=== PATIENT | male | born 1990 | race Caucasian/White ===

== ENCOUNTER 2016-05-23 14:39 | Inpatient (IN) | payer OTHER ==
[2016-05-23] MEDS ORDERED: 0.9 % SODIUM CHLORIDE 1,000 ML IV ONE (15:18)
[2016-05-23] MEDS ORDERED: 0.9 % SODIUM CHLORIDE 1,000 ML IV SCH ×2 (15:30→17:30)
--- NOTE | 2016-05-23 15:36 | ED Physician Documentation ---
General Adult - HISTORIAN Historian: patient, parent - HPI Chief Complaint: General Adult Additional Information: fever ache all over n/e onset 2 wks ago better then fe-occ w fever to 103.9 tachycardia rhinorrhea Timing: worse Severity: moderate, severe - ROS CONST: no problems EYES/ENT: none, nasal drainage. denies: problems with vision, sore throat CVS/RESP: denies: chest pain, shortness of breath, cough GI/: vomiting, nausea MS/SKIN/LYMPH: none, calf pain, neck pain, joint pain, back pain NEURO/PSYCH: denies: headache, fainting, dizziness - PAST HX Past History: none Other History: none Surgeries/Procedures: none Immunizations: UTD. denies: influenza, pneumovax Allergies/Adverse Reactions: Allergies Allergy/AdvReac Type Severity Reaction Status Date / Time No Known Drug Allergies Allergy Verified 05/23/16 17:05 - SOCIAL HX Smoking History: non-smoker Alcohol Use: occasionally Drug Use: none - FAMILY HX Family History: Yes (f-l-w [id number] sib l/w) - REVIEWED ASSESSMENTS Nursing Assessment Reviewed: Yes Vitals Reviewed: Yes ED Results Lab/Radiology - Orders Orders: ED Orders Category Date Time Status Continuous EKG monitoring Q30M Care 05/23/16 15:18 Active Continuous Pulse Oximetry Q30M Care 05/23/16 15:[address] Saline Lock/IV Now Care 05/23/16 15:18 Active CBC/PLATELET/DIFF Stat Lab 05/23/16 15:20 Received CMP Stat Lab 05/23/16 15:20 Received DRUG SCREEN URINE MEDICAL ONLY Stat Lab 05/23/16 Ordered INFLUENZA A&B Stat Lab 05/23/16 Uncollected THYROID STIMULATING HORMONE Stat Lab 05/23/16 15:20 Received TROPONIN I (cTnI) Stat Lab 05/23/16 15:20 Received UA W/MICRO IF INDICATED Stat Lab 05/23/16 15:21 Ordered 0.9 % Sodium Chloride [Normal Saline] 1,000 ml Med 05/23/16 15:18 Discontinued IV .STK-MED 0.9 % Sodium Chloride [Normal Saline] 1,000 ml Med 05/23/16 15:30 Ordered IV Q1 EKG WITH COMPARISON Routine Ther 05/23/16 Completed EKG WITH COMPARISON Stat Ther 05/23/16 Ordered General Adult Physical Exam - PHYSICAL EXAM GENERAL APPEARANCE: moderate distress EENT: eye inspection normal, pharynx normal NECK: normal inspection, lymphadenopathy RESPIRATORY: no resp distress, chest non-tender, breath sounds normal CVS: tachycardia (130+) ABDOMEN: soft, non-tender BACK: normal inspection SKIN: warm/dry EXTREMITIES: non-tender, normal range of motion, no evidence of injury, no edema NEURO: oriented X3, CN's nml as tested, motor nml, sensation nml, mood/affect nml, cognition normal Discharge Clincal Impression: influenza-non a non b Condition: Good Disposition: 09 ADMITTED INPATIENT Decision to Admit: [id number] Decision Time: 17:23
[2016-05-23] MEDS ORDERED: ACETAMINOPHEN 325 MG TABLET PO ONE (15:40)
[2016-05-23 15:48] LABS: eGFR (African) > 60; eGFR (Non-African) > 60
[2016-05-23 16:07] LABS: BASOPHILS % 0.1 (0.0-1.5); EOSINOPHILS % 0.4 % (0.0-6.8); LYMPHOCYTES # 0.8 # k/uL (0.6-4.0); MEAN CORPUSCULAR HEMOGLOBIN 31.2 pg (28.0-34.0); MONOCYTES # 0.8 # k/uL (0.0-0.9); MONOCYTES % 10.6 % (0.0-11.0); NEUTROPHILS # 5.6 # k/uL (1.4-7.7)
[2016-05-23 16:27] LABS: APPEARANCE,URINE Clear (CLEAR); COLOR,URINE Yellow (YELLOW); OCCULT BLOOD,URINE Negative (NEGATIVE); PH URINE 8.5 (5.0 - 8.0); UROBILINOGEN URINE 0.2 Eu (0.2-1.0)
[2016-05-23 16:32] LABS: AMPHETAMINE NEGATIVE ng/mL (<1000); BARBITURATES NEGATIVE ng/mL (<300); CANNABINOIDS NEGATIVE ng/mL (<50); COCAINE NEGATIVE ng/mL (<150); METHAMPHETAMINE NEGATIVE ng/mL (<1000); METHYLENEDIOXYMETHAMPHETAMINE NEGATIVE ng/mL (<500)
[2016-05-23 16:34] LABS: AMORPHOUS SEDIMENT,UR FEW (NEGATIVE)
[2016-05-23 19:11] VITALS: BMI 24.0
--- NOTE | 2016-05-23 19:43 | History and Physical Report ---
History of Present Illnes - History of Present Illness Reason for Visit: Nausea/vomiting/fever/weakness History of Present Illness: This is a 26 year old male admitted for weakness and nausea/vomiting/fever for the past week or so. He is usually very healthy, however he began to be ill with fever last week. He had an influenza and strep test done in the ER, and both were negative. He continues to be febrile. 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 Gastrointestinal: denies: Constipation, Diverticulosis Heme/Onc: denies: Anemia NOS, B12 deficiency Hepatobiliary: denies: Cirrhosis, Cholelithiasis Psych: denies: Anxiety, Addictions Musculoskeletal: denies: Chronic low back pain, Bursitis Rheumatologic: denies: Fibromyalgia Infectious Disease: denies: Bacterial vaginosis Renal/: denies: Chronic renal insuff, Acute renal failure Endocrine: denies: Diabetes, Hyperthyroidism Dermatology: denies: Eczema, Cellulitis - Past Surgical History Past Surgical History: None - Past Social History Smoke: No Alcohol: None Drugs: None Lives: Alone Domestic Violence: Negative - Health Maintenance Health Maintenance: Cholesterol Influenza Vaccine: Current for this Influenza Season Pneumonia Vaccine: Yes Resuscitation Status: Resusciation Status Resuscitation Status Full Code - Unable to Obtain History Unable to Obtain: No Review of Systems - Review of Systems Constitutional: Fever, Chills, Sweats Eyes: negative: pain ENT: negative: Ear Pain, Ear Discharge Respiratory: negative: Cough, Dry Cardiovascular: negative: Chest Pain, Palpitations Gastrointestinal: Nausea, Vomiting, Abdominal Pain Genitourinary: negative: Dysuria Musculoskeletal: negative: Neck Pain, Shoulder Pain Skin: negative: Rash, Lesions Neurological: Weakness - Medications/Allergies Allergies/Adverse Reactions: Allergies Allergy/AdvReac Type Severity Reaction Status Date / Time No Known Drug Allergies Allergy Verified 05/23/16 17:05 Current Inpatient Medications: Current Inpatient Medications Sodium Chloride (Normal Saline) 1,000 mls @ 1,000 mls/hr IV Q1 CLYDE Last Admin: 05/23/16 15:20 Dose: 1,000 mls/hr Sodium Chloride (Normal Saline) 1,000 mls @ 200 mls/hr IV Q10H CLYDE Sodium Chloride (Normal Saline) 1,000 mls @ 125 mls/hr IV Q8H CLYDE Exam - Exam Vital Signs: Vital Signs (72 hours) 05/23/16 05/23/16 18:39 19:00 Temperature 103.8 F H Pulse Rate 68 Pulse Rate [ 112 H Pulse ox] Respiratory 20 Rate Blood Pressure 141/75 [Left Arm] O2 Sat by Pulse 95 Oximetry General: Alert, Oriented to Person, Oriented to Place, Oriented to Time, Cooperative, Mild distress HEENT: Atraumatic, PERRLA, EOMI Neck: No: Stridor Lungs: Clear to auscultation, Normal air movement, Speaks full Sentences. No: Respiratory Distress, Wheezes, Rales Cardiovascular: Regular rate, Normal S1, Normal S2 Murmur: No: Systolic Murmur, Diastolic Murmur Murmur Location: No: [place] Abdomen: Normal bowel sounds, Soft, No tenderness Genitourinary: No: Right Inguinal Hernia, Left Inguinal Hernia Male Genitourinary: No: Scrotal Edema Integumentary: Normal, Flushed Extremities: No clubbing, No cyanosis, No edema Neurological: Normal gait, Normal speech Psych/Mental Status: Mental status NL Assessment/Plan - Assessment/Plan (1) Fever Status: Acute Current Visit: Yes Qualifiers: Fever type: unspecified Qualified Code(s): R50.9 - Fever, unspecified Assessment: Tylenol for fever Check CXR Repeat labs in am (2) Dehydration Status: Acute Current Visit: Yes Assessment: Continue NS at 125cc/hour Recheck labs in am Anticipate d/c in am. VTE Assessment - RISK FACTOR SCORE VTE RISK FACTOR SCORES: ANTICIPATED BED CONFINEMENT OR IMMOBILIZATION > 24 HOURS - RISK VTE LOW RISK: SCORE OF 1 OR LESS (RISK PROXIMAL DVT 0.4%) NO PROPHYLAXIS NEEDED (DVT prophylaxis not indicated)
[2016-05-23] MEDS: 0.9 % SODIUM CHLORIDE 1,000 ML IV SCH (20:35)
[2016-05-23] MEDS: ACETAMINOPHEN 325 MG TABLET PO PRN (21:49)
[2016-05-24] MEDS: ACETAMINOPHEN 325 MG TABLET PO PRN ×2 (02:37→08:38)
[2016-05-24] MEDS: 0.9 % SODIUM CHLORIDE 1,000 ML IV SCH (04:33)
--- NOTE | 2016-05-24 05:47 | Diagnostic Imaging Report ---
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 Heart size and pulmonary vascularity are normal. Osseous structures are unremarkable. Impression: Normal chest. 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
[2016-05-24 06:26] LABS: MEAN CORPUSCULAR HEMOGLOBIN 31.2 pg (28.0-34.0)
[2016-05-24 06:42] LABS: eGFR (African) > 60; eGFR (Non-African) > 60
[2016-05-24 08:42] VITALS: BP 148/87
--- NOTE | 2016-05-25 09:22 | Discharge Summary ---
DATE OF ADMISSION: May 23, 2016 DATE OF DISCHARGE: May 24, 2016 DIAGNOSES ON THIS HOSPITALIZATION: 1. Fever. 2. Dehydration. SUMMARIZATION OF ADMISSION HISTORY AND PHYSICAL: This is a 26-year-old male who was admitted for weakness, nausea, vomiting, and fever for the last week or so. He is usually very healthy; however, he has been ill for about the last week. He had an Influenza test and a strep test done in the ER and both of which were negative. He was admitted for IV hydration. HOSPITAL COURSE: He was admitted and IV hydration was given simply using normal saline. After a bolus of normal saline, he was able on the morning of discharge to eat very well. He will be discharged to home with Tylenol 650 mg every 4 hours p.r.n. fever. Continue oral rehydration. He will be off work until May 26, 2016. DISCHARGE INSTRUCTIONS: He will follow up in the office in 1 week. TAHIR
== END 2016-05-24 10:25 | disposition home or self-care (01) | DRG 641 ==
LOC: ED 14:39 → SOUTH 18:06
PROVIDERS: ADMIT Family Medicine; ATTEND Family Medicine
DX: E86.0 Dehydration (principal); R50.9 Fever, unspecified; R11.2 Nausea with vomiting, unspecified
CPT/HCPCS: 36415; 71020; 80048; 80053; 80377; 81002; 84443; 84484; 85025; 85027; 87070; 87400; 87880; 93005; J7030; 96360; 99222; 99238; 99284; G0481; S1016

== ENCOUNTER 2016-05-26 12:18 | Outpatient (CLI) | payer OTHER ==
[2016-05-27 13:31] LABS: ADENOVIRUS DNA NEGATIVE (NEGATIVE); BORDETELLA PERTUSSIS DNA NEGATIVE (NEGATIVE); SOURCE: NASOPHARYNGEAL SWAB
== END 2016-05-26 12:20 ==
LOC: LAB 12:18
PROVIDERS: ATTEND Physician Assistant
DX: Z72.51 High risk heterosexual behavior (principal); R50.9 Fever, unspecified
CPT/HCPCS: 36415; 86703; 87486; 87491; 87581; 87591; 87633; 87798

== ENCOUNTER 2016-10-06 22:25 | Emergency (ER) | payer SELFPAY ==
[2016-10-06 23:33] VITALS: BP 129/86
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
== END 2016-10-06 23:20 | disposition home or self-care (01) ==
LOC: ED 22:25
DX: Z77.21 Contact with and (suspected) exposure to potentially hazardous body fluids (principal)
CPT/HCPCS: 86703; 86706; 86803; 99283